=== PATIENT | male | born 1970 | race Two or more races ===

== ENCOUNTER 2017-08-12 08:21 | Outpatient (CLI) | payer OTHER ==
[~2017-08-12 08:21] MED LIST: AVALIDE 150-12.1 TA1; KETO10TA2 PO; LEVAQUIN750 MG PO; NABUMETONE750 MG PO; TIZANIDINE HCL2 MG PO; URIN D.S. TABLE1 TAB PO
== END 2017-08-12 15:12 | disposition home or self-care (01) ==
LOC: SONOGRAMA 08:21
DX: Z76.0 Encounter for issue of repeat prescription (principal); E66.8 Other obesity; R10.84 Generalized abdominal pain

== ENCOUNTER 2018-04-19 07:03 | Emergency (ER) | payer OTHER ==
[~2018-04-19] VITALS: Ht 180.3 cm; Wt 163.3 kg
== END 2018-04-19 12:13 | disposition home or self-care (01) ==
LOC: ER
DX: R51 Headache (principal); M54.2 Cervicalgia

== ENCOUNTER 2019-01-20 17:04 | Emergency (ER) | payer OTHER ==
[~2019-01-20] VITALS: Ht 180.3 cm; Wt 161.9 kg
== END 2019-01-20 20:36 | disposition home or self-care (01) ==
LOC: ER 17:04
DX: R23.8 Other skin changes (principal)

== ENCOUNTER 2019-06-11 13:45 | Outpatient (CLI) | payer OTHER | END 2019-06-11 14:00 | disposition home or self-care (01) | LOC: SONOGRAMA 13:45 | DX: E66.01 Morbid (severe) obesity due to excess calories (principal); M54.5 Low back pain; Z76.0 Encounter for issue of repeat prescription; I10 Essential (primary) hypertension; M25.521 Pain in right elbow ==

== ENCOUNTER 2019-11-25 09:11 | Outpatient (CLI) | payer OTHER | END 2019-11-25 11:01 | disposition home or self-care (01) | LOC: RAD 09:11 → MRI 11:30 | PROVIDERS: ATTEND Orthopaedic Surgery | DX: M25.562 Pain in left knee (principal); M25.561 Pain in right knee | CPT/HCPCS: 73721 ==

== ENCOUNTER 2021-09-19 10:01 | Outpatient (CLI) | payer OTHER | END 2021-09-19 10:16 | disposition home or self-care (01) | LOC: RAD 10:01 | PROVIDERS: ATTEND General Practice | DX: L60.0 Ingrowing nail (principal); L03.039 Cellulitis of unspecified toe; E11.8 Type 2 diabetes mellitus with unspecified complications; M25.571 Pain in right ankle and joints of right foot ==

== ENCOUNTER 2022-10-02 09:48 | Outpatient (CLI) | payer OTHER | END 2022-10-02 09:50 | disposition home or self-care (01) | LOC: LAB 09:48 | PROVIDERS: ATTEND Urology | DX: N47.1 Phimosis (principal) ==

== ENCOUNTER → 2022-10-05 06:00 | Outpatient (CLI) | payer OTHER ==
[~2022-10-05 06:00] MED LIST changes: +ATACAND HCT 321 EACH PO; +DAFLONEX-XL 11300 MG PO; +FARXIGA10 MG PO; +GLUMETZA500 MG PO; +GRALISE600 MG PO; +HORIZANT600 MG PO; +VASOF PO
== END | disposition home or self-care (01) ==
LOC: LAB 06:00 → ADM 07:15 → CIR.AMB 10-09 07:00 → EDSTATUS 10-09 07:15 → CIR.AMB 10-09 07:15
PROVIDERS: ATTEND Urology
DX: Z20.822 Contact with and (suspected) exposure to COVID-19 (principal); I10 Essential (primary) hypertension

== ENCOUNTER 2022-10-11 21:47 | Emergency (ER) | payer OTHER ==
[~2022-10-11] VITALS: Ht 180.3 cm; Wt 161.0 kg
[~2022-10-11 21:47] MED LIST changes: -DAFLONEX-XL 11300 MG PO; -GRALISE600 MG PO
== END 2022-10-12 01:16 | disposition home or self-care (01) ==
LOC: ER 21:47
DX: K29.70 Gastritis, unspecified, without bleeding (principal); K21.9 Gastro-esophageal reflux disease without esophagitis

== ENCOUNTER → 2022-11-27 10:05 | Outpatient (CLI) | payer OTHER | END | disposition home or self-care (01) | LOC: LAB 10:05 | PROVIDERS: ATTEND Urology | DX: N47.1 Phimosis (principal); Z01.818 Encounter for other preprocedural examination; Z01.812 Encounter for preprocedural laboratory examination ==

== ENCOUNTER 2022-12-04 05:39 | Day surgery (SDC) | payer OTHER ==
[~2022-12-04] VITALS: Ht 180.3 cm; Wt 155.6 kg
[~2022-12-04 05:39] MED LIST changes: +DAFLONEX-XL 11300 MG PO; +GRALISE600 MG PO
== END 2022-12-04 13:00 | disposition home or self-care (01) ==
LOC: CIR.AMB 05:39
PROVIDERS: ATTEND Urology
DX: N47.1 Phimosis (principal); Z20.822 Contact with and (suspected) exposure to COVID-19